=== PATIENT | male | born 1990 | race African-American/Black ===

== ENCOUNTER 2018-01-13 06:50 | Day surgery (SDC) | payer MEDICAID, OTHER ==
[~2018-01-13] VITALS: Ht 177.8 cm; Wt 138.8 kg
[2018-01-13] MEDS ORDERED: ALBUTEROL SULFATE 0.083% 2.5 MG/3 ML VIAL.NEB INH ONE ×2 (07:30→07:50)
[2018-01-13] MEDS ORDERED: ROCURONIUM BROMIDE 10 MG/ML (ZEMURON) IV ONE (08:49)
[2018-01-13] MEDS ORDERED: ONDANSETRON HCL 4 MG/2 ML VIAL IVP ONE ×2 (08:49→11:30)
[2018-01-13] MEDS ORDERED: fentaNYL CITRATE 250 MCG/5 ML AMP IV ONE (08:49)
[2018-01-13] MEDS ORDERED: LR 1,000 ML IV.SOLN IV ONE (08:49)
[2018-01-13] MEDS ORDERED: MIDAZOLAM HCL 5 MG/5 ML VIAL IVP ONE (08:49)
[2018-01-13] MEDS ORDERED: SEVOFLURANE 15 MIN GAS INH ONE (08:49)
[2018-01-13] MEDS ORDERED: NS IRRIG SOLN 1000 ML IR ONE (08:49)
[2018-01-13] MEDS ORDERED: LIDOCAINE/EPI 1% 1:100000 20 ML VIAL INJ ONE (08:49)
[2018-01-13] MEDS ORDERED: SUCCINYLCHOLINE CHLORIDE 20 MG/ML(QUELICIN) IVP ONE (08:49)
[2018-01-13] MEDS ORDERED: NS 1000 ML BAG IV ONE (08:49)
[2018-01-13] MEDS ORDERED: PROPOFOL 200MG/ 20ML VIAL (DIPRIVAN) IV ONE (08:49)
[2018-01-13] MEDS ORDERED: LIDOCAINE 1% 10 MG/ML, 20 ML MDV INJ ONE (08:49)
[2018-01-13] MEDS ORDERED: DEXAMETHASONE SOD PHOSPHATE 4 MG/ML VIAL IVP ONE (08:49)
[2018-01-13] MEDS ORDERED: EPINEPHrine 1 MG/ML AMP IV ONE (08:49)
[2018-01-13] MEDS ORDERED: MORPHINE 4 MG/ML INJ. SYRINGE IVP PRN (11:30)
[2018-01-13] MEDS ORDERED: NALOXONE HCL 0.4 MG/ML AMP (NARCAN) IVP ONE (11:30)
[2018-01-13] MEDS ORDERED: MEPERIDINE HCL/PF 25 MG/ML DISP.SYRIN IVP PRN (11:30)
[2018-01-13] MEDS ORDERED: MIDAZOLAM HCL 5 MG/5 ML VIAL IVP PRN (11:30)
[2018-01-13] MEDS ORDERED: fentaNYL CITRATE/PF 100 MCG/2 ML AMP IVP PRN (11:30)
[2018-01-13] MEDS ORDERED: fentaNYL CITRATE/PF 100 MCG/2 ML AMP ONE (13:18)
[2018-01-13 14:33] VITALS: BP_SYST 134
== END 2018-01-13 15:00 | disposition home or self-care (01) ==
LOC: SDS 06:50 → SMU 06:50 → SDS 15:00
PROVIDERS: ATTEND Otolaryngology
DX: J34.2 Deviated nasal septum (principal); J32.9 Chronic sinusitis, unspecified; J34.89 Other specified disorders of nose and nasal sinuses; J33.9 Nasal polyp, unspecified; Z88.8 Allergy status to other drugs, medicaments and biological substances; Z82.49 Family history of ischemic heart disease and other diseases of the circulatory system; Z79.899 Other long term (current) drug therapy; Z98.890 Other specified postprocedural states; Z68.41 Body mass index [BMI] 40.0-44.9, adult; J45.20 Mild intermittent asthma, uncomplicated; J30.1 Allergic rhinitis due to pollen; E66.01 Morbid (severe) obesity due to excess calories; R00.0 Tachycardia, unspecified
CPT/HCPCS: 30140; 30520; 30999; 31267; 31296; 31297; 87070; 87075; 87101; 88305; 88311; 94640; C1726; J0171; J0330; J1100; J2001; J2250; J2405; J2704; J3010 ×2; J7030; J7120; J7613